=== PATIENT | female | born 1955 | race Caucasian/White ===

== ENCOUNTER 2018-09-17 08:58 | Emergency (ER) | payer OTHER ==
[~2018-09-17] VITALS: Ht 160 cm; Wt 75.9 kg
[2018-09-17 09:33] VITALS: Ht 160 cm; Wt 75.9 kg
--- NOTE | 2018-09-17 12:06 | ERD ---
ER Documentation Chief Complaint Chief Complaint ap HPI The patient is a 62-year-old female, presenting to the ER because of left-sided abdominal pain, constipation for 5 days. She had similar symptoms previously, complains of subjective fever, complains of vague headache intermittently for the last 5 days, denies facial pain, cough, neck pain, chest pain, dyspnea, dysuria, diarrhea. She has a lot of stress, denies smoking or drinking Past medical history: None Past surgical history: Hysterectomy ROS All systems reviewed and are negative except as per history of present illness. Medications Home Meds Active Scripts Polyethylene Glycol* (Miralax*) 17 Gm Powd.pack, 17 GM PO DAILY, #7 Prov:SORIN SERVIN MD 09/17/18 Bisacodyl* (Dulcolax*) 5 Mg Tablet.dr, 10 MG PO DAILY PRN for CONSTIPATION, #5 TAB Prov:SORIN SERVIN MD 09/17/18 Ibuprofen* (Motrin*) 600 Mg Tab, 600 MG PO Q6H PRN for PAIN AND OR ELEVATED TEMP, #20 TAB Prov:SORIN SERVIN MD 09/17/18 Allergies Allergies: Coded Allergies: No Known Allergy (Unverified , 09/17/18) PMhx/Soc History of Surgery: No Anesthesia Reaction: No Hx Neurological Disorder: No Hx Respiratory Disorders: No Hx Cardiac Disorders: No Hx Psychiatric Problems: No Hx Miscellaneous Medical Probl: No Hx Alcohol Use: No Hx Substance Use: No Hx Tobacco Use: No Physical Exam Vitals Vital Signs Date Temp Pulse Resp B/P (MAP) Pulse Ox O2 O2 Flow FiO2 Time Delivery Rate 09/17/18 98.5 75 20 144/77 98 Room Air 13:55 (99) 09/17/18 97.9 85 18 147/62 99 09:33 (90) Physical Exam Const: No acute distress. Head: Atraumatic. Eyes: Normal Conjunctiva. ENT: Normal External Ears, Nose and Mouth. Neck: Full range of motion. No meningismus. Resp: Clear to auscultation bilaterally. Cardio: Regular rate and rhythm. Abd: Soft, non distended, normal bowel sounds, mild left lower quadrant tenderness, no rigidity/rebound/CVA tenderness Skin: No petechiae or rashes. Back: No midline or flank tenderness. Ext: No cyanosis, or edema. Neur: Awake and alert. No focal deficit Psych: Normal Mood and Affect. Result Diagram: 09/17/18 1228 09/17/18 1228 Results 24 hrs Laboratory Tests Test 09/17/18 12:28 09/17/18 12:42 White Blood Count 9.4 10^3/ul Red Blood Count 5.07 10^6/ul Hemoglobin 15.2 g/dl Hematocrit 44.6 % Mean Corpuscular Volume 88.0 fl Mean Corpuscular Hemoglobin 30.0 pg Mean Corpuscular Hemoglobin Concent 34.1 g/dl Red Cell Distribution Width 12.3 % Platelet Count 224 10^3/UL Mean Platelet Volume 11.6 fl Immature Granulocytes % 0.300 % Neutrophils % 56.1 % Lymphocytes % 36.8 % Monocytes % 4.6 % Eosinophils % 1.7 % Basophils % 0.5 % Nucleated Red Blood Cells % 0.0 /100WBC Immature Granulocytes # 0.030 10^3/ul Neutrophils # 5.2 10^3/ul Lymphocytes # 3.4 10^3/ul Monocytes # 0.4 10^3/ul Eosinophils # 0.2 10^3/ul Basophils # 0.1 10^3/ul Nucleated Red Blood Cells # 0.0 10^3/ul Sodium Level 142 mmol/L Potassium Level 4.0 mmol/L Chloride Level 105 mmol/L Carbon Dioxide Level 26 mmol/L Anion Gap 11 Blood Urea Nitrogen 11 mg/dl Creatinine 0.39 mg/dl Est Glomerular Filtrat Rate mL/min > 60 mL/min Glucose Level 284 mg/dl Calcium Level 9.2 mg/dl Total Bilirubin 1.8 mg/dl Direct Bilirubin 0.00 mg/dl Indirect Bilirubin 1.8 mg/dl Aspartate Amino Transf (AST/SGOT) 41 IU/L Alanine Aminotransferase (ALT/SGPT) 57 IU/L Alkaline Phosphatase 145 IU/L Total Protein 7.5 g/dl Albumin 4.3 g/dl Globulin 3.20 g/dl Albumin/Globulin Ratio 1.34 Lipase 118 U/L Bedside Urine pH (LAB) 5.0 Bedside Urine Protein (LAB) Negative Bedside Urine Glucose (UA) 0.50% Bedside Urine Ketones (LAB) 2+ Bedside Urine Blood Trace-intact Bedside Urine Nitrite (LAB) Negative Bedside Urine Leukocyte Esterase (L Negative Current Medications Medications Dose Sig/Bharati Start Time Status Last (Trade) Ordered Route PRN Stop Time Admin Dose Reason Admin Ketorolac 30 mg ONCE STAT 09/17/18 DC 09/17/18 Tromethamine IV 12:11 09/17/18 12:11 (Toradol) 12:13 Procedures/MDM [place] [address] Radiology Main Line: [phone] DIAGNOSTIC IMAGING REPORT Patient: BLANCO VERONICA : 1955 Age: 62 Sex: F MR #: [id number] DOS: 09/17/18 1211 Ordering MD: SORIN SERVIN MD Location: E/R Room/Bed: PROCEDURE: CT abdomen and pelvis without contrast. CLINICAL INDICATION: Abdominal pain. TECHNIQUE: CT scan of the abdomen and pelvis without contrast was performed on a multi-slice CT scanner . Sagittal and coronal reformatted images were obtained from the axial source images. One or more of the following dose reduction techniques were used: - Automated exposure control. - Adjustment of the mA and/or kV according to patient size. - Use of iterative reconstruction technique. DICOM images are available DLP 1051.4 mGycm. CTDIvol 18.4 mGy COMPARISON: None FINDINGS: Fine detail of the soft tissues is limited secondary to the lack of IV contrast. Evaluation for enhancing lesions cannot be performed. Lower thorax:The lung bases are clear. Coronary artery calcifications are seen in the heart. Liver: There is hepatomegaly and fatty infiltration of the liver with no gross focal lesion. Biliary: The gallbladder is distended with multiple layering gallstones without visible surrounding fat stranding or fluid. No biliary dilatation. Pancreas: Homogeneous density of the pancreas without visible focal lesion or cystic abnormality. There is no pancreatic ductal dilatation. Spleen: Unremarkable without enlargement or focal lesion. Adrenal Glands: The adrenal glands are within normal limits without mass. Urinary: The kidneys are symmetric in size bilaterally. There is a curvilinear calcific density seen in the upper pole of the right kidney. There is also a faint calcific density seen in the anterior right mid kidney measuring approximately 3 mm. No left-sided renal calcifications are present with no visible ureteral stones bilaterally. There is no hydronephrosis. Gastrointestinal: There is a fecal filled colon.No evidence of bowel obstructio n or inflammation. There is no appendicitis. There is diverticulosis without diverticulitis. Lymph nodes: There are no enlarged lymph nodes. Vascular: There is aortic atherosclerosis without aneurysmal dilatation. Peritoneum/mesentery: No free fluid or free air. Reproductive organs: The uterus is absent. The adnexal structures are grossly unremarkable. Musculoskeletal: Degenerative changes are seen in the lumbar spine with no acute osseous abnormality Other: None IMPRESSION: There is a fecal filled colon.No evidence of bowel obstruction or inflammation. There is no appendicitis. There is diverticulosis without diverticulitis. Atherosclerotic disease is present. Likely partially rim calcified right upper pole renal cyst is present within a second faint calcification at the right mid kidney which is nonobstructing. There are no visible ureteral calculi or evidence of hydronephrosis. Distended gallbladder is seen with multiple layering gallstones without early visible pericholecystic inflammatory changes on CT. Hepatomegaly and fatty liver. RPTAT: AA .Mellisa Gan MD, Date Time Electronically viewed and signed by .Mellisa Gan MD, MD on 09/17/2018 12:59 .J/ CC: SORIN SERVIN MD [phone] MEDICAL MAKING DECISION: The patient is a 62-year-old female, presenting with acute abdominal pain, most likely due to acute constipation, acute hyperglycemia -need to rule out for new onset diabetes, cholelithiasis, hepatic steatosis, abnormal LFT. She was treated with Toradol 30 mg IV for pain with good respons e, is stable for outpatient follow-up The differential diagnoses considered include but are not limited to cholelithiasis, cholecystitis, choledocholithiasis, cholangitis, pancreatitis, hepatitis, gastritis, peptic ulcer disease, gastric ulcer, appendicitis, cystitis, diverticulitis, partial small bowel obstruction. Departure Diagnosis: Primary Impression: Abdominal pain Additional Impressions: Constipation Cholelithiasis Hyperglycemia Hepatic steatosis Hepatomegaly Abnormal LFTs Condition: Stable Comments She was discharged with Motrin, Dulcolax suppository, MiraLAX I discussed the findings with the patient. I advised the patient to follow-up with the primary physician in about 1-2 days for reevaluation and rule out for new onset DM and referral to gastroenterology, sooner if needed and return if any concern. Disclaimer: Inadvertent spelling and grammatical errors are likely due to EHR/dictation software use and do not reflect on the overall quality of patient care. Also, please note that the electronic time recorded on this note does not necessarily reflect the actual time of the patient encounter. SORIN SERVIN MD Sep 17, 2018 12:06
[2018-09-17] MEDS ORDERED: KETOROLAC 30 MG INJ IV STA (12:11)
[2018-09-17] MEDS ORDERED: IBUP-1542 PO (13:40)
[2018-09-17] MEDS ORDERED: POLY17PO6 PO (13:41)
[2018-09-17] MEDS ORDERED: BISA-57 PO (13:41)
[2018-09-17 13:55] VITALS: BP 144/77; PULSE 75; RESP 20
== END 2018-09-17 13:55 | disposition home or self-care (01) ==
LOC: E/R 08:58
DX: K59.00 Constipation, unspecified (principal); K80.20 Calculus of gallbladder without cholecystitis without obstruction; R73.9 Hyperglycemia, unspecified; K76.0 Fatty (change of) liver, not elsewhere classified; R16.0 Hepatomegaly, not elsewhere classified; R94.5 Abnormal results of liver function studies
CPT/HCPCS: 74176; 80053; 81003; 83690; 85025; 96374; J1885; Z7502

== ENCOUNTER 2018-11-05 07:19 | Emergency (ER) | payer OTHER ==
[~2018-11-05] VITALS: Wt 70.0 kg
[~2018-11-05 07:19] MED LIST: ACET500C5 PO; BISA-57 PO; IBUP-1542 PO; METF-849 PO; NAPR-985 PO; POLY17PO6 PO
[2018-11-05 07:22] VITALS: BP 153/85; PULSE 76; RESP 18
[2018-11-05] MEDS ORDERED: KETOROLAC 30 MG INJ IM STA (08:07)
== END 2018-11-05 10:25 | disposition home or self-care (01) ==
LOC: FTE 07:19
DX: R51 Headache (principal); M54.6 Pain in thoracic spine
CPT/HCPCS: 36415; 80053; 81003; 82962; 83036; 93005; 96372; J1885; Z7502